=== PATIENT | female | born 1990 | race Caucasian/White ===

== ENCOUNTER → 2023-06-27 09:40 | Outpatient (REF) | payer BC, SELFPAY | LOC: WDC 09:40 | PROVIDERS: ATTENDING PHYSICIAN Nurse Practitioner Family; FAMILY PHYSICIAN Nurse Practitioner Adult Health | DX: N63.22 Unspecified lump in the left breast, upper inner quadrant (principal) | CPT/HCPCS: 76642; 77062; 77066 ==